=== PATIENT | male | born 1940 | race Caucasian/White ===

== ENCOUNTER 2017-07-08 16:11 | Emergency (ER) | payer MEDICARE, OTHER ==
[~2017-07-08] VITALS: Ht 185.4 cm; Wt 85.0 kg
[2017-07-08 16:14] VITALS: BP 163/78; PULSE 71; RESP 19; TEMP 97.5
[2017-07-08 16:16] VITALS: BP 163/78; PULSE 81
[2017-07-08] MEDS ORDERED: SODIUM CHLOR 0.9% 1000 ML INJ 1,000 ML IV ONE (16:30)
[2017-07-08] MEDS ORDERED: SODIUM CHLORIDE 0.9% FLUSH 10 ML FLUSH IVF PRN (16:30)
[2017-07-08 16:35] VITALS: BP 115/72; PULSE 74; RESP 15; O2SAT 98
[2017-07-08 16:56] LABS: AUTOMATED NEUTROPHIL # 5.3 TH/MM3 (1.8-7.7); BASOPHIL % 0.4 % (0.0-2.0); EOSINOPHIL # 0.1 TH/MM3 (0-0.4); HEMATOCRIT 38.1 % (39.0-51.0); HEMOGLOBIN 13.1 GM/DL (13.0-17.0); LYMPH % 26.6 % (9.0-44.0); LYMPHOCYTE # 2.5 TH/MM3 (1.0-4.8); MEAN CELL VOLUME 89.5 FL (80.0-100.0); MEAN CORPUSCULAR HEMOGLOBIN 30.7 PG (27.0-34.0); MEAN CORPUSCULAR HGB CONC 34.3 % (32.0-36.0); MEAN PLATELET VOLUME 7.6 FL (7.0-11.0); MONO % 15.4 % (0.0-8.0); MONOCYTE # 1.5 TH/MM3 (0-0.9); NEUT % 56.6 % (16.0-70.0); PLATELET COUNT 303 TH/MM3 (150-450); RED BLOOD COUNT 4.26 MIL/MM3 (4.50-5.90); RED CELL DISTRIBUTION WIDTH 13.4 % (11.6-17.2); WHITE BLOOD COUNT 9.4 TH/MM3 (4.0-11.0)
--- NOTE | 2017-07-08 16:57 | RADRPT ---
EXAM DATE: 07/08/2017 4:39 PM EDT AGE/SEX: 77 years / Male INDICATIONS: Chest pain CLINICAL DATA: This is the patient's initial encounter. Patient reports that signs and symptoms have been present for 2 months and indicates a pain score of 0/10. MEDICAL/SURGICAL HISTORY: Hypertension. None. COMPARISON: [facility], XR CHEST PA AND LAT, 05/28/2017. . FINDINGS: 2 AP erect portable views of the chest were obtained and demonstrate hyperinflation. There is chronic scarring in the right lung apex. There are no new confluent infiltrates or effusions. The heart size remains limits. There are mild atherosclerotic changes in the aorta. Overlying electrocardiogram crystal ds are present. CONCLUSION: Underlying emphysema and scarring. Electronically signed by: Ld Rubio MD 07/08/2017 4:56 PM EDT
[2017-07-08 17:04] LABS: INTERNATIONAL NORMALIZED RATIO 1.1 RATIO; PROTHROMBIN TIME - PATIENT 11.5 SEC (9.8-11.6)
--- NOTE | 2017-07-08 17:06 | PD ---
HPI Chief Complaint: Chest Pain Time Seen by Provider: 16:23 Travel History International Travel<30 days: No Contact w/Intl Traveler<30days: No Traveled to known affect area: No History of Present Illness HPI This is a 77-year-old male with a history of hypertension, who presents today via EMS after he had a near syncopal episode. Patient was out walking outside when he suddenly became short of breath and lightheaded. He states that he quickly went into [place] however still stated he felt short of breath. He denied any chest pain, chest pressure. Paramedics report that he was severely diaphoretic and pale when they reached him. They state that he had a blood pressure 2 episodes of 90/60. IV fluids were initiated. The patient does give history that he has been fighting bronchitis for 14 days. He does have a history of tobacco use and denies being diagnosed with COPD. The patient was complaining that he felt as though he needed to have a bowel movement. There is no abdominal pain. There is no history of abdominal aortic aneurysms. There are no other complaints at the time of my examination. PFSH Past Medical History Cardiovascular Problems: Yes (HTN) Hypertension: Yes Respiratory: Yes (BRONCHITIS ) Tetanus Vaccination: Unknown Influenza Vaccination: No Past Surgical History Tonsillectomy: Yes Other Surgery: Yes (HEMORRHOIDECTOMY 1970) Social History Alcohol Use: Yes (OCCASIONALLY ) Tobacco Use: Yes Substance Use: No Allergies-Medications (Allergen,Severity, Reaction): Coded Allergies: procaine (Verified Allergy, Unknown, RASHES, 07/08/17) Reported Meds & Prescriptions Reported Meds & Active Scripts Active Reported Cefuroxime (Cefuroxime Axetil) 500 Mg Tab 500 Mg PO BID 10 Days Metoprolol Tartrate 50 Mg Tab 50 Mg PO DAILY Lisinopril-Hctz 20-12.5 mg Tab (Lisinopril/Hydrochlorothiazide) 20 Mg-12.5 Mg Tablet 1 Tab PO DAILY Review of Systems Except as stated in HPI: all other systems reviewed are Neg General / Constitutional: No: Fever, Chills HENT: No: Headaches, Lightheadedness, Neck Pain Cardiovascular: No: Chest Pain or Discomfort, Palpitations Respiratory: Positive: Shortness of Breath, No: Cough Gastrointestinal: Positive: Other (Sensation of), No: Nausea, Vomiting, Abdominal Pain Genitourinary: No: Dysuria ( wanting to have a bowel movement.), Incontinence Musculoskeletal: Positive: Weakness (Generalized), No: Pain Neurologic: Positive: Weakness, Syncope, No: Headache (Presyncope), Change in Mentation Physical Exam Narrative GENERAL: Well-developed well-nourished male who appears in no acute respiratory distress. SKIN: Focused skin assessment warm/dry. HEAD: Atraumatic. Normocephalic. EYES: No scleral icterus. No injection or drainage. ENT: No nasal bleeding or discharge. Mucous membranes pink and moist. NECK: Trachea midline. No JVD. Supple. CARDIOVASCULAR: Regular rate and rhythm. No murmur appreciated. RESPIRATORY: No accessory muscle use. Clear to auscultation. Breath sounds equal bilaterally. GASTROINTESTINAL: Abdomen soft, non-tender, nondistended. Hepatic and splenic margins not palpable. MUSCULOSKELETAL: No obvious deformities. No clubbing. No cyanosis. No edema. NEUROLOGICAL: Awake and alert. No obvious cranial nerve deficits. Motor grossly within normal limits. Normal speech. PSYCHIATRIC: Appropriate mood and affect; insight and judgment normal. Data Data Last Documented VS Vital Signs Date Time Temp Pulse Resp B/P (MAP) Pulse Ox O2 Delivery O2 Flow Rate FiO2 07/08/17 17:30 85 18 129/90 (103) 99 Nasal Cannula 2.00 07/08/17 16:14 97.5 Orders Orders Basic Metabolic Panel (Bmp) (07/08/17 16:23) Ckmb (Isoenzyme) Profile (07/08/17 16:23) Complete Blood Count With Diff (07/08/17 16:23) Magnesium (Mg) (07/08/17 16:23) Prothrombin Time / Inr (Pt) (07/08/17 16:23) Act Partial Throm Time (Ptt) (07/08/17 16:23) Troponin I (07/08/17 16:23) Chest, Single Ap (07/08/17 16:23) Ecg Monitoring (07/08/17 16:23) Bilateral Bp Monitoring (07/08/17 16:23) Iv Access Insert/Monitor (07/08/17 16:23) Oximetry (07/08/17 16:23) Oxygen Administration (07/08/17 16:23) Sodium Chloride 0.9% Flush (Ns Flush) (07/08/17 16:30) Sodium Chlor 0.9% 1000 Ml Inj (Ns 1000 M (07/08/17 16:30) Electrocardiogram (07/08/17 16:16) Sodium Chlorid 0.9% 500 Ml Inj (Ns 500 M (07/08/17 17:45) Labs Laboratory Tests Test 07/08/17 16:30 White Blood Count 9.4 TH/MM3 Red Blood Count 4.26 MIL/MM3 Hemoglobin 13.1 GM/DL Hematocrit 38.1 % Mean Corpuscular Volume 89.5 FL Mean Corpuscular Hemoglobin 30.7 PG Mean Corpuscular Hemoglobin Concent 34.3 % Red Cell Distribution Width 13.4 % Platelet Count 303 TH/MM3 Mean Platelet Volume 7.6 FL Neutrophils (%) (Auto) 56.6 % Lymphocytes (%) (Auto) 26.6 % Monocytes (%) (Auto) 15.4 % Eosinophils (%) (Auto) 1.0 % Basophils (%) (Auto) 0.4 % Neutrophils # (Auto) 5.3 TH/MM3 Lymphocytes # (Auto) 2.5 TH/MM3 Monocytes # (Auto) 1.5 TH/MM3 Eosinophils # (Auto) 0.1 TH/MM3 Basophils # (Auto) 0.0 TH/MM3 CBC Comment DIFF FINAL Differential Comment Prothrombin Time 11.5 SEC Prothromb Time International Ratio 1.1 RATIO Activated Partial Thromboplast Time 21.9 SEC Blood Urea Nitrogen 16 MG/DL Creatinine 1.23 MG/DL Random Glucose 81 MG/DL Calcium Level 8.3 MG/DL Magnesium Level 1.8 MG/DL Sodium Level 137 MEQ/L Potassium Level 4.2 MEQ/L Chloride Level 103 MEQ/L Carbon Dioxide Level 24.5 MEQ/L Anion Gap 10 MEQ/L Estimat Glomerular Filtration Rate 57 ML/MIN Total Creatine Kinase 45 U/L Troponin I LESS THAN 0.02 NG/ML MDM Medical Decision Making Medical Screen Exam Complete: Yes Emergency Medical Condition: Yes Differential Diagnosis Vasovagal episode versus metabolic derangement versus non-STEMI versus COPD exacerbation Narrative Course 77-year-old male presents after having a near syncopal episode. Patient was out in the heat when he became extremely diaphoretic and lightheaded. When paramedics arrived they found his blood pressure 90/60. He was given fluid en route. When he arrived here his blood pressure was back into the 140s systolic. He was asymptomatic at the time of my evaluation. EKG showed a right bundle branch block. Cardiac enzymes and electrolytes and blood count were within normal limits. The patient's been given 1-1/2 L of IV fluid. He states he feels back to baseline and wishes to go home. I recommended that he increase his fluid intake over the next 2-3 days. He is also instructed to make sure he does drink enough water. His female friend at the bedside states that he drinks coffee in the morning and very little water during the day. He understands the importance of increasing his fluid intake. Diagnosis Primary Impression: Syncope suspect vasovagal Additional Impression: Mild volume depletion Additional Instructions: Follow-up with your primary care physician. Drink plenty of fluids. Try to drink up to 8 8 ounce cups of water per day. Decrease caffeine intake. Try and stop smoking. Disposition: 01 DISCHARGE HOME Condition: Stable Alex Stock MD July 08, 2017 17:06
[2017-07-08 17:16] LABS: BICARBONATE 24.5 MEQ/L (21.0-32.0); BLOOD UREA NITROGEN 16 MG/DL (7-18); CALCIUM 8.3 MG/DL (8.5-10.1); CHLORIDE 103 MEQ/L (98-107); CREATININE 1.23 MG/DL (0.60-1.30); GLOMERULAR FILTRATION RATE 57 ML/MIN (>89); GLUCOSE,RANDOM 81 MG/DL (74-106); MAGNESIUM 1.8 MG/DL (1.5-2.5); SODIUM (NA) 137 MEQ/L (136-145)
[2017-07-08 17:21] LABS: TROPONIN I LESS THAN 0.02 NG/ML (0.02-0.05)
[2017-07-08 17:30] VITALS: BP 129/90; PULSE 85; RESP 18; O2SAT 99
[2017-07-08] MEDS ORDERED: CEFU1TAB20 PO (17:40)
[2017-07-08] MEDS ORDERED: LISI20TA PO (17:40)
[2017-07-08] MEDS ORDERED: METO50TA PO (17:40)
[2017-07-08] MEDS ORDERED: SODIUM CHLORID 0.9% 500 ML INJ 500 ML IV ONE (17:45)
--- NOTE | 2017-07-09 15:19 | EKG ---
Date Performed: 07/08/2017 Time Performed: 16:16:16 PTAGE: 77 years EKG: Sinus rhythm INDETERMINATE AXIS RIGHT BUNDLE BRANCH BLOCK ABNORMAL ECG Possible prior inferior infarct, age undet ermined NO PREVIOUS TRACING DOCTOR: Jeovanny Whitehead Interpretating Date/Time 07/09/2017 15:17:48
== END 2017-07-08 20:18 | disposition home or self-care (01) ==
LOC: NEPC 16:11
DX: R55 Syncope and collapse (principal); I10 Essential (primary) hypertension; Z72.0 Tobacco use
CPT/HCPCS: 71045; 80048; 82550; 83735; 84484; 85025; 85610; 85730; 93005; 99285; J7030; J7040